=== PATIENT | female | born 1985 | race Caucasian/White ===

== ENCOUNTER 2021-08-08 14:27 | Outpatient (REF) | payer OTHER, SELFPAY ==
--- NOTE | ~2021-08-08 | XR_ITS ---
EXAMINATION: XR KNEE, RIGHT CLINICAL INFORMATION: Leg pain after a fall. COMPARISON: None TECHNIQUE: Four views of the right knee. FINDINGS: Bones and soft tissues are normal. No fracture or joint effusion. Alignment is anatomic. Joint spaces are well maintained. No abnormal soft tissue calcification. XR/XR knee RT 4V IMPRESSION: Normal right knee.
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
== END 2021-08-08 14:28 | disposition home or self-care (01) ==
LOC: HO.XRAY 14:27
PROVIDERS: Visit Provider Physician Assistant Medical
DX: M25.561 Pain in right knee (principal); M79.661 Pain in right lower leg; W18.09XA Striking against other object with subsequent fall, initial encounter; Y93.9 Activity, unspecified; Y92.9 Unspecified place or not applicable; Y99.0 Civilian activity done for income or pay
CPT/HCPCS: 73564; 73590

== ENCOUNTER 2024-07-17 15:10 | Outpatient (REF) | payer OTHER, SELFPAY ==
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
[2024-07-17 15:26] LABS: MANUAL DIFF FLAG NO
[2024-07-17 15:40] LABS: Basophils Absolute Auto 0.1 X10*3/uL (0.0-0.2); Basophils Percent Auto 0.8 % (0-2); Eosinophils Percent Auto 0.6 % (0-4); Hematocrit 40.1 % (37.0-47.0); Hemoglobin 13.8 g/dl (12.0-16.0); Imm Gran Abs Auto 0.01 X10*3/uL (0.00-0.03); Imm Gran Pct Auto 0.2 % (0.0-0.4); Lymphocytes Absolute Auto 1.4 X10*3/uL (1.2-4.9); Mean Corpuscular HGB Conc 34.4 g/dl (31.0-35.0); Mean Corpuscular Volume 90.1 fL (80.0-98.0); Mean Platelet Volume 11.2 fL (9.4-12.3); Monocytes Absolute Auto 0.3 X10*3/uL (0.1-1.2); Monocytes Percent Auto 5.1 % (2-11); Neutrophils Absolute Auto 4.6 x10*3/uL (2.0-8.3); Neutrophils Percent Auto 71.3 % (45-73); Platelet Count 202 X10*3/uL (160-400); Red Blood Count 4.45 X10*6/uL (4.20-5.50); Red Cell Distribution Width 13.7 % (11.0-16.0); White Blood Count 6.4 X10*3/uL (4.8-10.8)
[2024-07-17 16:10] LABS: Alanine Aminotransferase 20 U/L (0-31); Anion Gap 13 (12-20); Blood Urea Nitrogen 17 mg/dL (9-16); Calcium 9.6 mg/dL (8.4-10.2); Carbon Dioxide 25 mmol/L (22-29); Chloride 106 mmol/L (96-108); Cholesterol 223 mg/dL (<200); Estimated Glomerular Filt Rate > 60; Glucose Random 126 mg/dL (60-115); HDL Cholesterol 90 mg/dL (>40); Iron 95 mcg/dL (30-160); LDL Cholesterol Calculated 125 mg/dL (<100); Percent Iron Saturation 27 % (15-50); Potassium 3.9 mmol/L (3.3-5.1); Sodium 140 mmol/L (135-145); Total Iron Binding Capacity 350 mcg/dL (228-428); Triglycerides 44 mg/dL (<150); Unsaturated Iron Binding 255 ug/dL
[2024-07-17 16:11] LABS: Reflex LDLD? No
[2024-07-17 16:24] LABS: TSH reflex Free T4 0.54 uIU/mL (0.32-4.0)
[2024-07-18 04:32] LABS: HBsAGNum1 0.29 S/CO (0.00-0.99); Hepatitis B Surface Antigen Negative (Negative)
[2024-07-22 18:49] LABS: Quantiferon TB Gold Plus 1 NEGATIVE (NEGATIVE); TB Test (QFT) Mitogen -Nil 9.46 IU/mL; TB Test (QFT) Nil 0.01 IU/mL
== END 2024-07-17 15:11 | disposition home or self-care (01) ==
LOC: HO.LAB 15:10
PROVIDERS: PCP Internal Medicine; Visit Provider Internal Medicine
DX: Z11.1 Encounter for screening for respiratory tuberculosis (principal); Z11.59 Encounter for screening for other viral diseases; R53.83 Other fatigue; E78.5 Hyperlipidemia, unspecified
CPT/HCPCS: 36415; 80048; 80061; 83540; 84443; 84460; 85025; 86480; 87340